=== PATIENT | female | born 1955 ===

== ENCOUNTER 2016-08-31 13:36 | Observation (INO) | payer OTHER ==
[2016-08-31] MEDS ORDERED: Iohexol 240 (50 ml) PO ONE (14:10)
[2016-08-31] MEDS ORDERED: Iohexol 240 (50 ml) ONE (14:33)
[2016-08-31 14:37] LABS: BASO # 0.1 K/uL (0.0-0.2); BASO % 1.2 % (0.0-2.0); EOS # 0.2 K/uL (0.0-0.7); EOS % 1.3 % (0.0-4.0); HEMATOCRIT 41.1 % (34.0-47.0); LYMPH # 2.3 K/uL (1.0-4.3); LYMPH % 19.4 % (20.0-40.0); MEAN CORPUSCULAR HEMOGLOBIN 27.8 pg (27.0-31.0); MEAN CORPUSCULAR HGB CONC 33.1 g/dL (33.0-37.0); MEAN PLATELET VOLUME 9.5 fl (7.2-11.7); MONO # 0.6 K/uL (0.0-0.8); MONO % 4.9 % (0.0-10.0); NEUT # 8.8 K/uL (1.8-7.0); NEUT % 73.2 % (50.0-75.0); RED CELL DISTRIBUTION WIDTH 12.3 % (11.5-14.5)
[2016-08-31] MEDS ORDERED: Sodium Chloride 0.9% 1,000 ML IV STA ×2 (14:39→19:47)
[2016-08-31 14:47] LABS: ALB/GLOB RATIO 1.1 (1.0-2.1); ALKALINE PHOSPHATASE 93 U/L (38-126); ALT/SGPT 16 U/L (9-52); AST/SGOT 28 U/L (14-36); BILIRUBIN,TOTAL 0.7 mg/dl (0.2-1.3); BLOOD UREA NITROGEN 23 mg/dl (7-17); CALCIUM 10.3 mg/dL (8.4-10.2); CARBON DIOXIDE 24 mmol/L (22-30); CHLORIDE 99 mmol/L (98-107); GFR AFRICAN-AMERICAN > 60; GLUCOSE,RANDOM 369 mg/dL (65-105); LIPASE 266 U/L (23-300); SODIUM 136 mmol/l (132-148); TOTAL PROTEIN 8.6 G/DL (6.3-8.2)
[2016-08-31 14:48] LABS: RBC URINE 8 /hpf (0-3); URINE BACTERIA OCC (<OCC); URINE BILIRUBIN NEGATIVE (NEGATIVE); URINE COLOR YELLOW (YELLOW); URINE GLUCOSE (UA) >=500 mg/dL (Normal); URINE KETONE TRACE mg/dL (NEGATIVE); URINE LEUKOCYTE ESTERASE LARGE Leu/uL (Negative); URINE PROTEIN 100 mg/dL (NEGATIVE); URINE UROBILINOGEN 0.2-1.0 mg/dL (0.2-1.0); WBC URINE 121 /hpf (0-5)
[2016-08-31 14:49] LABS: URINE BLOOD SMALL (NEGATIVE)
[2016-08-31 14:50] LABS: WBC CLUMPS OCC /hpf
[2016-08-31 14:51] LABS: POTASSIUM 5.5 MMOL/L (3.6-5.0)
[2016-08-31] MEDS ORDERED: cefTRIAXone (Rocephin) 1 gm Inj IVPB ONE (16:15)
[2016-08-31] MEDS ORDERED: cefTRIAXone (Rocephin) 1 gm Inj ONE (17:11)
[2016-08-31] MEDS ORDERED: Iohexol 300 100 ML IJ ONE (17:20)
[2016-08-31] MEDS ORDERED: Sodium Chloride 0.9% 50 ML IV ONE (17:20)
[2016-08-31 19:05] VITALS: RESP 18
--- NOTE | 2016-08-31 19:23 | ED PDOC ---
HPI: Abdomen Time Seen by Provider: 08/31/16 13:55 Chief Complaint (Nursing): Abdominal Pain Chief Complaint (Provider): ABDOMINAL PAIN History Per: Patient (60 Y/O FEMALE HERE WITH COMPLAINT OF CONSTIPATION X 4 DAYS ASSOCIATED WITH PERSISTNET LOWER ABDOMINAL AND BACK PAIN. NOTES VOMITING TODAY. DENIES ANY FEVERS OR CHILLS. NOTES MILD BACK PAIN.) Quality Of Discomfort: denies: Unable To Describe Past Medical History Reviewed: Historical Data, Nursing Documentation, Vital Signs Vital Signs: Last Vital Signs Temp 98.4 F 08/31/16 13:40 Pulse 78 08/31/16 15:05 Resp 18 08/31/16 15:05 BP 130/78 08/31/16 15:05 Pulse Ox 98 08/31/16 19:49 - Family History Family History: States: No Known Family Hx - Home Medications Home Medications: Ambulatory Orders Medication Instructions Recorded Cephalexin [Keflex] 500 mg PO QID #28 capsule 08/31/16 Docusate Sodium [Colace] 100 mg PO BID #20 capsule 08/31/16 - Allergies Allergies/Adverse Reactions: Allergies Allergy/AdvReac Type Severity Reaction Status Date / Time No Known Allergies Allergy Verified 08/31/16 13:40 Review of Systems ROS Statement: Except As Marked, All Systems Reviewed And Found Negative Gastrointestinal: Positive for: Vomiting, Abdominal Pain, Constipation Physical Exam - Reviewed Nursing Documentation Reviewed: Yes Vital Signs Reviewed: Yes - Physical Exam Appears: Positive for: Well, Non-toxic, No Acute Distress Head Exam: Positive for: ATRAUMATIC, NORMAL INSPECTION, NORMOCEPHALIC Skin: Positive for: Normal Color, Warm, DRY Eye Exam: Positive for: EOMI, Normal appearance, PERRL ENT: Positive for: Normal ENT Inspection Neck: Positive for: Normal, Painless ROM Cardiovascular/Chest: Positive for: Regular Rate, Rhythm Respiratory: Positive for: CNT, Normal Breath Sounds Gastrointestinal/Abdominal: Positive for: Normal Exam, Bowel Sounds, Soft Back: Positive for: Normal Inspection Extremity: Positive for: Normal ROM Neurologic/Psych: Positive for: Alert, Oriented - Laboratory Results Result Diagrams: 08/31/16 14:31 08/31/16 14:31 Urine dip results: Positive for: Leukocyte Esterase, Blood, Nitrate, Glucose. Negative for: Ketones, Bilirubin - ECG O2 Sat by Pulse Oximetry: 98 - Progress ED Course And Treament: BLOOD GLUCOSE NOTED ABOVE 300 NS 1 LITER WIDE OPEN FLEET ENEMA GIVEN PREPPED FOR CT ABD/PELVIS UTI NOTED ROCEPHIN 1 GM IV X 1 DOSE POTASSIUM NOTED ELEVATED WITH HEMOLYSED SPECIMEN EKG AT 15:28 REVIEWED: nsr 87BPM RBBB NO ACUTE CHANGES NONSPECIFIC CHANGES V2/ V3 REPEAT BLOOD GLUCOSE 342. INSULIN 6 UNITS IV NS 1 LITER ORDERED WILL REPEAT POTASSIUM LEVEL ED OBSERVATION Date of observation admission: 08/31/16 Time of observation admission: 19:51 - Observation admission statement Patient is being placed in observation because:: HYPERKALEMIA/HYPERGLYCEMIA - Goals of Observation Goals of observation are:: IMPROVEMENT OF POTASSIUM/GLUCOSE - Progress Note Progress Note: 08/31/16 19:51 PATIENT HAS BEEN EVALUATED TODAY FOR ABDOMINAL PAIN CT ABD/PELVIS:WNL PATIENT NOTES IMPROVEMENT OF SYMTPOMS WITH BOWEL MOVEMENT IN ED. NOTED TO HAVE ELEVATED BS 342 INSULIN 6 UNITS ORDERED WILL REPEAT POTASSIUM WELL NS 1 LITER 2ND LITER ORDERED Disposition - Clinical Impression Clinical Impression: UTI (urinary tract infection), Constipation - Patient ED Disposition Is Patient to be Admitted: No - Disposition Disposition: Transfer of Care Disposition Time: 20:00 Condition: FAIR Prescriptions: Cephalexin [Keflex] 500 mg PO QID #28 capsule Docusate Sodium [Colace] 100 mg PO BID #20 capsule Instructions: Constipation (DC), Urinary Tract Infection in Women (ED), High Fiber Diet (ED), Diabetic Hyperglycemia (ED) Print Language: WOLOF Patient Signed Over To: Lida Novoa Handoff Comments: REPEAT POTASSIUM. REPEAT BLOOD GLUCOSE
[2016-08-31] MEDS ORDERED: Insulin Regular 100 units/ml IVP ONE (19:46)
[2016-08-31] MEDS ORDERED: Insulin Regular 100 units/ml ONE (19:53)
--- NOTE | 2016-08-31 20:15 | ED PDOC ---
- Laboratory Results Result Diagrams: 08/31/16 14:31 08/31/16 22:39 - ECG O2 Sat by Pulse Oximetry: 98 Pulse Ox Interpretation: Normal Medical Decision Making Medical Decision Making: Case was signed out to report writer from WILIAM Perez pending repeat fingerstick and repeat K. 9:30 pm: glucose POC is 282, down from 369 Repeat K was 1.9 but concerning for lab error. K was repeated again, noted to be normal at 4.7 Patient is aware of all diagnostic testing results, all questions answered. She was instructed to take rx meds as directed and follow up with PMD in 2-3 days. Disposition - Clinical Impression Clinical Impression: UTI (urinary tract infection), Constipation, Diabetes mellitus with hyperglycemia - POA Present On Arrival: None - Disposition Disposition: Routine/Home Disposition Time: 21:39 Condition: FAIR Results - Lab Results Lab Results: 08/31/16 08/31/16 08/31/16 14:31 14:31 14:31 WBC 12.0 H RBC 4.89 Hgb 13.6 Hct 41.1 MCV 84.0 MCH 27.8 MCHC 33.1 RDW 12.3 Plt Count 344 MPV 9.5 Neut % (Auto) 73.2 Lymph % (Auto) 19.4 L Frio % (Auto) 4.9 Eos % (Auto) 1.3 Baso % (Auto) 1.2 Neut # 8.8 H Lymph # 2.3 Frio # 0.6 Eos # 0.2 Baso # 0.1 Sodium 136 Potassium 5.5 H Chloride 99 Carbon Dioxide 24 Anion Gap 19 BUN 23 H Creatinine 0.7 Est GFR ( Amer) > 60 Est GFR (Non-Af Amer) > 60 Random Glucose 369 H Calcium 10.3 H Total Bilirubin 0.7 AST 28 ALT 16 Alkaline Phosphatase 93 Total Protein 8.6 H Albumin 4.5 Globulin 4.0 H Albumin/Globulin Ratio 1.1 Lipase 266 Urine Color Yellow Urine Clarity Cloudy Urine pH 6.0 Ur Specific [place] 1.021 Urine Protein 100 Urine Glucose (UA) >=500 Urine Ketones Trace Urine Blood Small Urine Nitrate Negative Urine Bilirubin Negative Urine Urobilinogen 0.2-1.0 Ur Leukocyte Esterase Large Urine RBC (Auto) 8 H Urine WBC Clumps (Auto) Occ H Urine Microscopic WBC 121 H Ur Squamous Epith Cells < 1 Urine Bacteria Occ H Urine Yeast (Budding) Rare H
[2016-08-31 21:28] VITALS: BP 128/71; PULSE 77; TEMP 99.7
[2016-08-31 21:39] VITALS: O2SAT 98
[2016-08-31 22:07] LABS: ABG ALLEN TEST YES; ARTERIAL BLOOD GAS O2 CAPACITY 18.8 mL/dL (16-24); ARTERIAL BLOOD GAS O2 CONTENT 17.7 ML/dL (15-23); ARTERIAL BLOOD GAS PH 7.43 (7.35-7.45); ARTERIAL BLOOD GAS PO2 73 mm/Hg (80-100); ARTERIAL BLOOD HGB O2 SAT 92.9 % (95.0-98.0); CARBOXYHEMOGLOBIN 0.1 % (0.5-1.5); METHEMOGLOBIN 0.9 % (0.0-3.0)
--- NOTE | 2016-09-01 09:55 | CT ---
PROCEDURE: CT Abdomen and Pelvis with contrast HISTORY: R/O SBO COMPARISON: None. TECHNIQUE: Contrast dose: 100 cc of Omnipaque 300 Radiation dose: Total exam DLP = 1623 mGy-cm. This CT exam was performed using one or more of the following dose reduction techniques: Automated exposure control, adjustment of the mA and/or kV according to patient size, and/or use of iterative reconstruction technique. FINDINGS: LOWER THORAX: Unremarkable. Small hiatal hernia. LIVER: Unremarkable. No gross lesion or ductal dilatation. GALLBLADDER AND BILE DUCTS: Cholecystectomy. PANCREAS: Unremarkable. No gross lesion or ductal dilatation. SPLEEN: Unremarkable. ADRENALS: Unremarkable. No mass. KIDNEYS AND URETERS: Unremarkable. No hydronephrosis. No solid mass. VASCULATURE: Unremarkable. No aortic aneurysm. BOWEL: Unremarkable. No obstruction. No gross mural thickening. APPENDIX: Normal appendix. PERITONEUM: Unremarkable. No free fluid. No free air. LYMPH NODES: Unremarkable. No enlarged lymph nodes. BLADDER: Unremarkable. REPRODUCTIVE: Hysterectomy. BONES: No acute fracture. OTHER FINDINGS: None. IMPRESSION: Unremarkable contrast enhanced CT of the abdomen and pelvis.
--- NOTE | 2016-09-01 11:30 | CARD ---
APPROVED REPORT EKG Measurement Heart [id number] MI [id number] <Conclusion> Normal sinus rhythm Right bundle branch block Abnormal ECG
== END 2016-08-31 23:06 | disposition home or self-care (01) ==
LOC: H.ER 13:36 → H.EROBSV 19:50
PROVIDERS: ADMIT Emergency Medicine; ATTEND Emergency Medicine
DX: N39.0 Urinary tract infection, site not specified (principal); E11.65 Type 2 diabetes mellitus with hyperglycemia; K59.00 Constipation, unspecified; R10.9 Unspecified abdominal pain
CPT/HCPCS: 74177; 80053; 81003; 82803; 82948; 83690; 84132; 85025; 87086; 87181; 93005; 96374; 99283; G0378; J0696; J7040; Q9966; Q9967

== ENCOUNTER 2018-03-05 09:22 | Emergency (ER) | payer OTHER ==
[2018-03-05 09:35] VITALS: TEMP 98.1; O2SAT 99
--- NOTE | 2018-03-05 10:03 | ED PDOC ---
Upper Extremity Pain/Injury Time Seen by Provider: 03/05/18 09:49 Chief Complaint (Nursing): Headache History Per: Patient Onset/Duration Of Symptoms: Days (4) Current Symptoms Are (Timing): Still Present Quality: Aching Severity: Moderate Exacerbating Factor(s): Movement Additional Complaint(s): Slipped and fell on ice last Friday with injury to right shoulder, head and neck. No LOC. Seen in ED in [facility] this occurred. CT head and neck neg as per discharge instructions given to pt. Xray right shoulder also neg. Pt discharge with Dx of contusion. States continues to have pain right shoulder. Past Medical History Vital Signs: Last Vital Signs Temp 98.1 F 03/05/18 09:34 Pulse 75 03/05/18 09:34 Resp 18 03/05/18 09:34 BP 142/80 03/05/18 09:34 Pulse Ox 99 03/05/18 09:34 - Medical History PMH: HTN - Surgical History Surgical History: Cholecystectomy - Family History Family History: States: Unknown Family Hx - Home Medications Home Medications: Ambulatory Orders Medication Instructions Recorded Cephalexin [Keflex] 500 mg PO QID #28 capsule 08/31/16 Docusate Sodium [Colace] 100 mg PO BID #20 capsule 08/31/16 traMADol [Ultram] 50 mg PO Q8 #10 tab 03/05/18 - Allergies Allergies/Adverse Reactions: Allergies Allergy/AdvReac Type Severity Reaction Status Date / Time No Known Allergies Allergy Verified 08/31/16 13:40 Review of Systems Musculoskeletal: Positive for: Shoulder Pain Neurological: Negative for: Headache, Dizziness Physical Exam - Physical Exam Appears: Positive for: Non-toxic, Uncomfortable Head Exam: Positive for: ATRAUMATIC, NORMAL INSPECTION, NORMOCEPHALIC Skin: Positive for: Normal Color, Warm, DRY Neck: Positive for: Normal, Painless ROM, Supple Cardiovascular/Chest: Positive for: Regular Rate, Rhythm Respiratory: Positive for: CNT, Normal Breath Sounds Pulses-Radial (L): 2+ Pulses-Radial (R): 2+ Extremity: Positive for: Other (Right shoulder, No deformity or swelling No ecchymosis. Tenderness ant deltoid area. ROM limited by pain.) Neurologic/Psych: Positive for: Alert, Oriented. Negative for: Motor/Sensory Deficits - Laboratory Results Result Diagrams: 03/05/18 10:30 03/05/18 10:30 - ECG O2 Sat by Pulse Oximetry: 99 Medical Decision Making Medical Decision Making: Will repeat Xray right shoulder due to continued pain despite immobilization and pain meds. Disposition - Clinical Impression Clinical Impression: Shoulder sprain - Patient ED Disposition Is Patient to be Admitted: No Counseled Patient/Family Regarding: Studies Performed, Diagnosis, Need For Followup, Rx Given - Disposition Referrals: Sean Okeefe III, MD [Staff Provider] - Disposition: Routine/Home Disposition Time: 13:48 Condition: FAIR Prescriptions: traMADol [Ultram] 50 mg PO Q8 #10 tab Instructions: Shoulder Sprain Forms: [facility] (Chilean) Print Language: CROATIAN
[2018-03-05] MEDS ORDERED: Sodium Chloride 0.9% 1,000 ML IV STA (10:20)
[2018-03-05 10:40] LABS: BASO % 0.3 % (0.0-2.0); EOS # 0.2 K/uL (0.0-0.7); EOS % 2.4 % (0.0-4.0); HEMOGLOBIN 12.7 g/dL (12.0-16.0); LYMPH # 3.1 K/uL (1.0-4.3); LYMPH % 35.7 % (20.0-40.0); MEAN CELL VOLUME 84.5 fl (81.0-99.0); MEAN CORPUSCULAR HGB CONC 33.2 g/dL (33.0-37.0); MEAN PLATELET VOLUME 8.4 fl (7.2-11.7); MONO # 0.7 K/uL (0.0-0.8); MONO % 7.8 % (0.0-10.0); NEUT # 4.6 K/uL (1.8-7.0); NEUT % 53.8 % (50.0-75.0); NRBC % 0.5 % (0.0-0.0); RBC 4.53 Mil/uL (3.80-5.20); RED CELL DISTRIBUTION WIDTH 13.3 % (11.5-14.5); WHITE BLOOD COUNT 8.5 K/uL (4.8-10.8)
[2018-03-05 10:59] LABS: ALB/GLOB RATIO 1.1 (1.0-2.1); ALT/SGPT 15 U/L (9-52); AST/SGOT 16 U/L (14-36); BLOOD UREA NITROGEN 19 mg/dl (7-17); CALCIUM 9.3 mg/dL (8.4-10.2); GFR NON-AFRICAN AMERICAN > 60
--- NOTE | 2018-03-05 11:14 | RAD ---
Date of service: 03/05/2018 PROCEDURE: Radiographs of the Right Shoulder HISTORY: trauma COMPARISON: No prior. FINDINGS: BONES: No acute fracture. JOINTS: Glenohumeral and acromioclavicular joint degenerative changes. SOFT TISSUES: Normal. OTHER FINDINGS: None. IMPRESSION: No demonstrated fracture or dislocation. Degenerative changes.
[2018-03-05 13:58] VITALS: BP 132/69; PULSE 62; RESP 19
[2018-03-06] MEDS ORDERED: Insulin Regular 100 units/ml SC SCH (07:30)
== END 2018-03-05 14:06 | disposition home or self-care (01) ==
LOC: H.ER 09:22
DX: S43.401A Unspecified sprain of right shoulder joint, initial encounter (principal); W19.XXXA Unspecified fall, initial encounter; Y92.410 Unspecified street and highway as the place of occurrence of the external cause; I10 Essential (primary) hypertension
CPT/HCPCS: 73030; 80053; 82948; 85025; 96372; 99285; J1885; J7030